=== PATIENT | female | born 1940 | race African-American/Black ===

== ENCOUNTER 2017-11-08 15:29 | Emergency (ER) | payer MEDICARE, BC ==
--- NOTE | 2017-11-08 18:34 | RAD ---
LEFT FINGER THREE VIEWS: HISTORY: Pain. COMPARISON: None. FINDINGS: Moderate interphalangeal joint space narrowing and osteophyte formation. Mild degenerative changes o f the thumb carpometacarpal joint. No acute displaced fracture is appreciated. IMPRESSION: 1. Degenerative changes. 2. No acute abnormality. POS: [facility]
== END 2017-11-08 18:10 | disposition home or self-care (01) ==
LOC: ERS 15:29
DX: L03.012 Cellulitis of left finger (principal)